=== PATIENT | male | born 1980 | race Caucasian/White ===

== ENCOUNTER 2017-08-29 18:08 | Emergency (ER) | payer BC ==
[2017-08-29 18:24] VITALS: BP 134/70
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
== END 2017-08-29 19:10 | disposition home or self-care (01) ==
LOC: UCEAST 18:08
DX: S00.93XA Contusion of unspecified part of head, initial encounter (principal); Y00.XXXA Assault by blunt object, initial encounter; Y93.9 Activity, unspecified; Y92.9 Unspecified place or not applicable; Z88.0 Allergy status to penicillin; F17.210 Nicotine dependence, cigarettes, uncomplicated
CPT/HCPCS: 99201; G0463